=== PATIENT | female | born 1995 | race Caucasian/White ===

== ENCOUNTER 2017-06-12 20:04 | Emergency (ER) | payer MEDICAID ==
[~2017-06-12] VITALS: Ht 162.6 cm; Wt 94.3 kg
[2017-06-12 20:13] VITALS: BP_SYST 97
[2017-06-12 20:31] VITALS: BP_SYST 144
[2017-06-12] MEDS ORDERED: IBUPROFEN 600 MG TABLET PO ONE (21:00)
[2017-06-12 21:30] VITALS: BP_SYST 130
== END 2017-06-12 21:30 | disposition home or self-care (01) ==
LOC: SED 20:04
DX: G44.209 Tension-type headache, unspecified, not intractable (principal); R03.0 Elevated blood-pressure reading, without diagnosis of hypertension
CPT/HCPCS: 99282